=== PATIENT | female | born 1935 | race Caucasian/White ===

== ENCOUNTER 2019-09-05 21:50 | Emergency (ER) | payer OTHER ==
[~2019-09-05] VITALS: Ht 172.7 cm; Wt 71.7 kg
[2019-09-05 22:34] LABS: ABSOLUTE NEUTROPHILS 4.1 thou/uL (1.4-8.2); ANION GAP 10 mmol/L (7-16); BASOPHILS 0.7 % (0.0-2.0); BUN 21 mg/dL (7-18); CALCIUM 9.3 mg/dL (8.5-10.1); CHLORIDE 105 mmol/L (98-107); CO2 25 mmol/L (21-32); EOSINOPHILS 3.1 % (0.0-3.0); GLUCOSE 143 mg/dL (74-106); HEMATOCRIT 44.5 % (37.0-47.0); LYMPHOCYTES 42.6 % (24.0-44.0); MCH 31.1 pg (26.0-34.0); MCHC 33.8 g/dL (28.0-37.0); MONOCYTES 8.8 % (1.0-8.0); PLATELET COUNT 234 thou/uL (150-400); POLYS 44.8 % (36.0-66.0); POTASSIUM 3.9 mmol/L (3.5-5.1); RBC 4.84 mil/uL (4.20-5.00); RDW 13.5 % (10.5-14.5); SODIUM 140 mmol/L (136-145); WBC 9.1 thou/uL (4.0-11.0)
[2019-09-05 22:43] LABS: TROPONIN-I <0.06 ng/mL (<0.06)
[2019-09-06 00:35] VITALS: BP 155/70
--- NOTE | 2019-09-09 13:00 | EKG ---
[address] [place] [address] ELECTROCARDIOGRAM REPORT Name: ROBI PORTER Room #: [facility] Latrell#: [id number] Admission: 09/05/19 Attend Phys: Discharge: 09/06/19 Date of : 39 Report #: [id number] THIS REPORT FOR: //name// [facility] ED Test Date: 2019-09-05 Test Time: 22:03:30 Pat Name: ROBI PORTER Department: Room: Gender: F [employer] Former: MARY : 1935 Requested By: Katia Brown Order Number: [id number] MD: Isrrael Amezcua Measurements Intervals [place] Rate: 94 P: 67 [place]: 177 QRS: 40 QRSD: 125 T: 5 QT: 379 QTc: 474 Interpretive Statements Sinus rhythm Multiform ventricular premature complexes Left atrial enlargement Nonspecific intraventricular conduction delay No previous ECG available for comparison Electronically Signed On 09-09-2019 12:59:24 ORBITREAD OPERATOR by Isrrael Amezcua [email or web address] <ELECTRONICALLY SIGNED> By: Isrrael Amezcua MD 09/09/19 [id number] 02 Isrrael Amezcua MD /YVAN
== END 2019-09-06 00:35 | disposition home or self-care (01) ==
LOC: ER 21:50
PROVIDERS: Emergency Medicine
DX: I50.9 Heart failure, unspecified (principal); R09.02 Hypoxemia